=== PATIENT | male | born 1995 | race Two or more races ===

== ENCOUNTER 2017-08-01 10:03 | Emergency (ER) | payer OTHER ==
[2017-08-01 10:17] VITALS: BP 136/85; PULSE 87; TEMP 98.8; BMI 29.0
--- NOTE | 2017-08-01 11:16 | PDOC ---
History of Present Illness - General Chief Complaint: Injury Stated Complaint: INJURY Time Seen by Provider: 08/01/17 11:16 History Source: Patient Exam Limitations: No Limitations - History of Present Illness Initial Comments: 08/01/17 11:35 Pt. is a 21 y/o M no PMH presents to the ED s/p fall. Pt. states that he fell down 8 steps while at work approximately 2 hours ago. He hit his head against a step and had a cut to the back of his head. Pt. states that immediately after falling he felt light headed. States that this has since resolved. Admits to headache and upper back pain. Denies LOC, neck pain, dizziness, weakness, changes in speech or gait. Past History - Travel Traveled outside of the country in the last 30 days: No Close contact w/someone who was outside of country & ill: No - Past Medical History Allergies/Adverse Reactions: Allergies Allergy/AdvReac Type Severity Reaction Status Date / Time No Known Allergies Allergy Verified 08/01/17 10:14 Home Medications: Ambulatory Orders NK [No Known Home Medication] 08/01/17 Asthma: Yes COPD: No - Suicide/Smoking/Psychosocial Hx Smoking History: Never smoked Have you smoked in the past 12 months: No Information on smoking cessation initiated: No Hx Alcohol Use: No Drug/Substance Use Hx: No Substance Use Type: None Review of Systems - Review of Systems Constitutional: No: Chills, Fever, Malaise, Weakness HEENTM: No: Recent change in vision, Ear Pain, Ear Discharge Musculoskeletal: Yes: Back Pain (upper R back pain) Integumentary: No: Bruising, Lesions, Lumps Neurological: Yes: Headache. No: Numbness, Paresthesia, Tremors, Weakness, Unsteady Gait, Dizziness All Other Systems: Reviewed and Negative *Physical Exam - Vital Signs Last Vital Signs Temp Pulse Resp BP Pulse Ox 98.8 F 87 18 136/85 100 08/01/17 10:14 08/01/17 10:14 08/01/17 10:14 08/01/17 10:14 08/01/17 10:14 - Physical Exam General Appearance: Yes: Nourished, Appropriately Dressed. No: Apparent Distress (sitting on exam bed, AAOx3 breathing easily) HEENT: positive: EOMI, DENZEL, Normal ENT Inspection, Normal Voice, Symmetrical, TMs Normal, Pharynx Normal, Jacques (1 inch laceration to the mid occipital region. Hemostatsis controlled at this time). negative: Other (no hemotympanum , step offs or crepitus felt) Neck: positive: Trachea midline, Supple. negative: Tender, Rigid, Decreased range of motion, Lymphadenopathy (R), Lymphadenopathy (L) Respiratory/Chest: positive: Lungs Clear, Normal Breath Sounds. negative: Chest Tender, Respiratory Distress, Accessory Muscle Use, Rales, Rhonchi, Stridor, Wheezing Cardiovascular: positive: Regular Rhythm, Regular Rate, S1, S2 (present). negative: Murmur Integumentary: positive: Normal Color, Dry, Warm, Other (1 inch laceration to the mid occipital region). negative: Erythema, Diaphoresis, Bruising Neurologic: positive: pumper hand II-XII NML intact, Fully Oriented, Alert, Normal Mood/ Affect, Normal Response, Motor Strength 5/5. negative: Confused, Disoriented Medical Decision Making - Medical Decision Making 08/01/17 11:41 Pt. is a 21 y/o M with no PMH who presents to the ED with a headache and head laceration s/p fall down 8 stairs. Neuro exam normal, VSS, afebrile. Given mechanism, will obtain head CT at this time. Laceration will need repair with mercedes after scan. Re-evaluate 08/01/17 12:57 Laceration repaired with mercedes. See proceedure note. Head CT negative. will d/ c home at this time *DC/Admit/Observation/Transfer Diagnosis at time of Disposition: Fall (on) (from) other stairs and steps, initial encounter, Laceration - Discharge Dispostion Disposition: HOME Condition at time of disposition: Good Admit: No - Referrals Referrals: Daniel La [Primary Care Provider] - - Patient Instructions Printed Discharge Instructions: DI for Laceration Repair Additional Instructions: You fell down the stairs today. Your head CT was normal. Your cut was repaired with mercedes. Please return to the ED in one week to have the mercedes removed. You may wash your hair once a day. Let your hair air dry, do not rub the area. You may take tylenol as needed for pain. Return to the ED if you have worsening headache, light headedness, dizziness, vomiting, or any changes in your symptoms - Post Discharge Activity Forms/Work/School Notes: Back to Work
[2017-08-01] MEDS ORDERED: ACETAMINOPHEN 325 MG TABLET (FP) PO ONE (12:57)
[2017-08-01] MEDS ORDERED: ACETAMINOPHEN 325 MG TABLET (FP) ONE (13:06)
== END 2017-08-01 13:08 | disposition home or self-care (01) ==
LOC: JERFT 10:03
PROC: 0HQ0XZZ Repair Scalp Skin, External Approach (ICD-10-PCS; principal; 2017-08-01)
DX: S01.01XA Laceration without foreign body of scalp, initial encounter (principal); W10.9XXA Fall (on) (from) unspecified stairs and steps, initial encounter; Y93.89 Activity, other specified; Y92.9 Unspecified place or not applicable; Y99.0 Civilian activity done for income or pay; J45.909 Unspecified asthma, uncomplicated
CPT/HCPCS: 70450-TC; 99281-25